=== PATIENT | male | born 1985 | race Caucasian/White ===

== ENCOUNTER 2016-09-28 20:52 | Emergency (ER) | payer OTHER ==
[2016-09-28] MEDS ORDERED: OPTIRAY 350 100 ML VIAL HMH IV ONE (20:53)
[2016-09-28] MEDS ORDERED: ASPIRIN 81 MG CHEW TAB ONE (21:06)
== END 2016-09-29 02:11 | disposition home or self-care (01) ==
LOC: ER 20:52
CPT/HCPCS: 36415; 71010; 71260; 80053; 82550; 83690; 83735; 84484; 85025; 85379; 85610; 85730; 93005